=== PATIENT | male | born 1980 | race Caucasian/White ===

== ENCOUNTER 2016-08-27 15:45 | Emergency (ER) | payer MEDICAID, OTHER ==
[~2016-08-27] VITALS: Ht 162.6 cm; Wt 59.5 kg
[2016-08-27 15:49] VITALS: Ht 162.6 cm; Wt 59.5 kg
[2016-08-27] MEDS ORDERED: TETRACAINE 0.5% 4 ML OPH RIGHT EYE ONE (16:30)
[2016-08-27] MEDS ORDERED: FLUORESCEIN STRIP RIGHT EYE ONE (16:30)
[2016-08-27] MEDS ORDERED: ACET325T33 PO (17:13)
[2016-08-27] MEDS ORDERED: GENT5DRO28 RIGHT EYE (17:13)
--- NOTE | 2016-08-27 17:44 | ERA ---
ER Documentation Chief Complaint Date/Time DATE: 08/27/16 TIME: 17:37 Chief Complaint FEELS LIKE PIECE OF GLASS IN RIGHT EYE X4 DAYS HPI This is a 36-year-old male presenting 4 days after feeling a foreign body enter his right eye while sweeping fiberglass off of a concrete floor. Patient has not done anything to relieve the symptoms at this time. Describes the discomfort as a foreign body feeling but denies I have all pain. Patient denies change in vision, photophobia, changes in hearing, fever, headache or difficulty breathing. Patient has no other complaints and describes no other associated manifestations. ROS All systems reviewed and are negative except as per history of present illness. Medications Home Meds Active Scripts Acetaminophen* (Tylenol*) 325 Mg Tablet, 1 TAB PO Q6 Y for PAIN AND OR ELEVATED TEMP, #20 TAB Prov:STAR MRAX PA-C 08/27/16 Gentamicin Sulfate* (Gentamicin Sulfate* Ophth) 0.3% - 5 Ml Drops, 1 DROP RIGHT EYE Q4 for 14 Days, EA Prov:STAR MARX PA-C 08/27/16 PMhx/Soc Medical and Surgical Hx: pt denies Medical Hx, pt denies Surgical Hx Hx Alcohol Use: Yes Hx Substance Use: No Hx Tobacco Use: No Smoking Status: Never smoker Physical Exam Vitals Vital Signs Date Time Temp Pulse Resp B/P Pulse Ox O2 Delivery O2 Flow Rate FiO2 08/27/16 15:49 98.0 76 18 141/76 98 Physical Exam Const: Well-appearing well-developed 36-year-old male in no acute distress. Head: Atraumatic Eyes: Pterygium of the right eye that is covering 1 mm of the lower nasal cornea. Fluorescein eye stain resulted and visualized foreign body without strength time. Erythematous injected sclera. PERRLA and EOMI bilaterally. ENT: Normal External Ears, Nose and Mouth. Neck: Full range of motion..~ No meningismus. Resp: Clear to auscultation bilaterally Cardio: Regular rate and rhythm, no murmurs Abd: Soft, non tender, non distended. Normal bowel sounds Skin: No petechiae or rashes Back: No midline or flank tenderness Ext: No cyanosis, or edema Neur: Awake and alert Psych: Normal Mood and Affect Results 24 hrs Current Medications Medications (Trade) Dose Ordered Sig/Lelia Route PRN Reason Start Time Stop Time Status Last Admin Dose Admin Tetracaine HCl (Tetracaine 0.5% Steri-Unit Karen) 1 drop ONCE ONCE RIGHT EYE 08/27/16 16:30 08/27/16 16:31 DC Fluorescein Sodium (Iebhi-J-Mzooo) 1 strip ONCE ONCE RIGHT EYE 08/27/16 16:30 08/27/16 16:31 DC Procedures/MDM Patient is being worked up and evaluated for a pruritic, non-painful, acute red right eye as described in the history and physical exam. My current differential includes, but is not limited to, the following: trauma, acute glaucoma, uveitis, conjunctivitis, hemorrhage, etc. Two drops of tetracaine were used in the right eye. A fluorescein eye stain was then applied using a strip along the lower eyelid of the affected eye and the results showed foreign body of the right cornea. A slit lamp was then used for further evaluation and 1/2 mm black irregular shaped foreign body in the lower area of the cornea. Visual acuity was measured before and after the procedures and treatment, and remained unchanged. The current most likely diagnosis is corneal foreign body removed with needle. First attempt of foreign body removal with 22-gauge needle was unsuccessful. I enlisted the help of my supervising physician Dr. Cheng crook who assisted with the removal of foreign body successfully removed it with a cotton tip swab on the first attempt. There are no complications with the procedure. Visual acuity was measured after the procedure and remained unchanged. At this time I have very little suspicion for acute glaucoma, corneal ulcer, keratitis, uveitis, or hemorrhage. I have spoke with the patient regarding their condition and future management. They have verbally responded that they understand their status and treatment plan. The patients vitals are stable, and their current condition is appropriate for discharge. The patient will be given discharge instructions with return precautions. Discharge medications include acetaminophen for discomfort, and gentamicin ophthalmic solution for affected eye with instructions to follow-up with ophthalmology in the next 1-3 days. Patient has verbally stated that he understands his current condition and treatment plan. Departure Diagnosis: Primary Impression: Corneal foreign body Qualified Code: T15.01XA - Corneal foreign body, right, initial encounter Additional Impression: Eye injury Qualified Code: S05.91XA - Right eye injury, initial encounter Condition: Stable Patient Instructions: Corneal Foreign Body, Removed Referrals: [facility] Hours: Mon - Fri 9:00 AM - 5:00 PM Additional Instructions: Seguimiento con Oftalmologa en los prximos tolentino 1-3 para alexa evaluacin ms exhaustiva. Volver el servicio de urgencias inmediatamente si los sntomas empeoran o cambiaran. Si usted tiene alguna pregunta con respecto a medicamentos , pedir esparza farmacutico o a nosotros antes de salir. Producirse reacciones adversas mientras est tomando mahad medicamentos, suspender el tratamiento y regresar a la fermin de emergencias inmediatamente. [place] [facility] medicamentos [facility] lo indique y completar el curso entero de tratamiento. STAR MARX PA-C Aug 27, 2016 17:44
== END 2016-08-27 17:20 | disposition home or self-care (01) ==
LOC: FTE 15:45
DX: T15.01XA Foreign body in cornea, right eye, initial encounter (principal); X58.XXXA Exposure to other specified factors, initial encounter; Y92.9 Unspecified place or not applicable
CPT/HCPCS: 65222; Z7610

== ENCOUNTER 2016-12-24 08:02 | Emergency (ER) | payer SELFPAY ==
[~2016-12-24] VITALS: Ht 170.2 cm; Wt 60.0 kg
[~2016-12-24 08:02] MED LIST: ACET325T33 PO; GENT5DRO28 RIGHT EYE
[2016-12-24 08:04] VITALS: Ht 170.2 cm; Wt 60.0 kg
[2016-12-24] MEDS ORDERED: FLUORESCEIN STRIP LEFT EYE ONE (08:30)
[2016-12-24] MEDS ORDERED: TETRACAINE 0.5% 4 ML OPH LEFT EYE ONE (08:30)
--- NOTE | 2016-12-24 08:35 | ERD ---
ER Documentation Chief Complaint Chief Complaint left eye pain x 4 days, blur vision HPI This is a 36-year-old male who presents the emergency department today complaining of left eye pain and redness and burning and decreased vision. 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 Denies any trauma. ROS All systems reviewed and are negative except as per history of present illness. Medications Home Meds Active Scripts Ibuprofen* (Motrin*) 600 Mg Tab, 600 MG PO Q6, #30 TAB Prov:LONNIE CINTRON PA-C 12/24/16 Ofloxacin* (Ocuflox*) 0.3%-5 Ml Ophth Drops, 1 DROP LEFT EYE QID for 7 Days, BOTTLE Prov:LONNIE CINTRON PA-C 12/24/16 Acetaminophen* (Tylenol*) 325 Mg Tablet, 1 TAB PO Q6 Y for PAIN AND OR ELEVATED TEMP, #20 TAB Prov:STAR MARX PA-C 08/27/16 Gentamicin Sulfate* (Gentamicin Sulfate* Ophth) 0.3% - 5 Ml Drops, 1 DROP RIGHT EYE Q4 for 14 Days, EA Prov:STAR MARX PA-C 08/27/16 PMhx/Soc Hx Alcohol Use: Yes Hx Substance Use: No Hx Tobacco Use: No Physical Exam Vitals Vital Signs Date Time Temp Pulse Resp B/P Pulse Ox O2 Delivery O2 Flow Rate FiO2 12/24/16 08:04 97.0 72 18 120/66 100 Physical Exam Const: NAD Head: Atraumatic Eyes: Bilateral eye with pterygium. Left eye with conjunctival erythema and evidence of corneal foreign body ENT: Normal External Ears, Nose and Mouth. Neck: Full range of motion..~ No meningismus. Resp: Clear to auscultation bilaterally Cardio: Regular rate and rhythm, no murmurs Skin: No petechiae or rashes Neur: Awake and alert Psych: Normal Mood and Affect Results 24 hrs Current Medications Medications (Trade) Dose Ordered Sig/Lelia Route PRN Reason Start Time Stop Time Status Last Admin Dose Admin Fluorescein Sodium (Oywmo-R-Blpvp) 1 strip ONCE ONCE LEFT EYE 12/24/16 08:30 12/24/16 08:31 DC Tetracaine HCl (Tetracaine 0.5% Steri-Unit Karen) 1 drop ONCE ONCE LEFT EYE 12/24/16 08:30 12/24/16 08:31 DC Procedures/MDM This is a 6-year-old male who presents the emergency department today complaining of left eye pain redness and burning for the past 4 days as well as decreased vision. On physical exam patient has conjunctival erythema and evidence of a corneal foreign body. Visual acuity left eye 20/40 Right eye 20/13 Bilateral 20/15 Fluorescein eye stain under Patel lamp shows corneal ulcer with abrasion and foreign body. Use tetracaine to numb the area foreign body was successfully removed with a insulin needle and cotton swab. Patient tolerated the seizure well. There were no complications. Symptoms at this time is consistent with renal ulcer and removed corneal foreign body low suspicion for acute narrow angle glaucoma, globe rupture, hyphema Patient was given a prescription for Motrin and Ocuflox patient was instructed to wear better fitting eye protection. Instructed to follow-up with the eye care center patient had this same problem in his right eye in August 2016. He did not follow-up with an ophthalmology specialist at that time. At this time the patient is stable for discharge and outpatient management. Patient should follow up with their PCP in the next 1-2 days. They may return to the emergency department sooner for any persistent or worsening of symptoms. Patient understood and agreed with the plan. Departure Diagnosis: Primary Impression: Eye problem Condition: LONNIE Bruno PA-C Dec 24, 2016 08:35
[2016-12-24] MEDS ORDERED: IBUP-1542 PO (08:51)
[2016-12-24] MEDS ORDERED: OFLO5DRO46 LEFT EYE (08:51)
== END 2016-12-24 09:05 | disposition home or self-care (01) ==
LOC: FTE 08:02
DX: H57.12 Ocular pain, left eye (principal)
CPT/HCPCS: 99283